=== PATIENT | male | born 1980 | race Caucasian/White ===

== ENCOUNTER 2018-11-16 11:06 | Emergency (ER) | payer SELFPAY ==
[~2018-11-16] VITALS: Ht 175.3 cm; Wt 85.0 kg
[2018-11-16] MEDS ORDERED: SODIUM CHLORIDE 0.9% 1,000 ML IV ONE ×2 (11:53→12:00)
[2018-11-16] MEDS ORDERED: INSULIN REGULAR (HUMULIN R) 300UNITS/3ML IV ONE (12:00)
[2018-11-16 12:12] LABS: BASOPHILS % 0.3 % (0.0-2.0); EOSINOPHILS % 1.8 % (0.0-5.0); HEMATOCRIT. 44.3 % (42.0-52.0); LYMPHOCYTES % 33.8 % (20.0-50.0); MEAN CORPUSCULAR HEMOGLOBIN 30.1 pg (28.0-32.0); MEAN PLATELET VOLUME 8.8 fl (7.4-10.4); MONOCYTES % 4.5 % (2.0-8.0); NEUTROPHILS % 59.6 % (40.0-76.0); PLATELET 254 x1000/uL (130-400); RED BLOOD CELL COUNT 4.97 mill/uL (4.7-6.1); RED CELL DISTRIBUTION WIDTH 12.9 % (11.6-14.6)
[2018-11-16 12:18] LABS: CHLORIDE 104 mEq/L (98-107)
[2018-11-16 12:24] LABS: BETA HYDROXYBUTYRATE 4.5 mMol/L (0.0-0.3)
[2018-11-16] MEDS ORDERED: IOHEXOL-350 100 ML BOTTLE ONE (14:41)
[2018-11-16 15:46] LABS: CLARITY URINE CLEAR (CLEAR); COLOR URINE YELLOW (YELLOW); KETONES URINE 3+ (NEGATIVE); LEUKOCYTE ESTERASE URINE NEGATIVE (NEGATIVE); NITRITE URINE NEGATIVE (NEGATIVE); OCCULT BLOOD URINE NEGATIVE (NEGATIVE); PROTEIN URINE NEGATIVE (NEGATIVE); SPECIFIC GRAVITY URINE 1.089 (1.005-1.030); UROBILINOGEN URINE 0.2 E.U./dL (0.2-1.0)
[2018-11-16 16:45] VITALS: BP 125/65
== END 2018-11-16 17:07 | disposition home or self-care (01) ==
LOC: ER 11:06
DX: S13.9XXA Sprain of joints and ligaments of unspecified parts of neck, initial encounter (principal); R07.89 Other chest pain; R10.9 Unspecified abdominal pain; I10 Essential (primary) hypertension; E11.9 Type 2 diabetes mellitus without complications; V49.88XA Car occupant (driver) (passenger) injured in other specified transport accidents, initial encounter; Y93.89 Activity, other specified; Y92.89 Other specified places as the place of occurrence of the external cause; Y99.8 Other external cause status
CPT/HCPCS: 36415; 70450; 71045; 71260; 72125; 74177; 80053; 81003; 82010; 83690; 84484; 85025; 93005; 96374; 99284; J1815; J7030; Q9967

== ENCOUNTER 2021-05-03 15:58 | Inpatient (IN) | payer MEDICAID ==
[~2021-05-03] VITALS: Ht 177.8 cm; Wt 80.7 kg
[2021-05-03] MEDS ORDERED: ONDANSETRON HCL 4MG/2ML INJ IV STA (16:48)
[2021-05-03] MEDS ORDERED: SODIUM CHLORIDE 0.9% 1,000 ML IV ONE ×2 (17:00→20:00)
[2021-05-03 17:14] LABS: BASOPHILS % 0.3 % (0.0-2.0); EOSINOPHILS % 0.4 % (0.0-5.0); HEMATOCRIT. 52.2 % (42.0-52.0); HEMOGLOBIN. 17.5 g/dL (14.0-18.0); LYMPHOCYTES % 25.1 % (20.0-50.0); MEAN CORPUSCULAR HEMOGLOBIN 30.7 pg (28.0-32.0); MEAN CORPUSCULAR VOLUME 91.4 fL (80.0-94.0); MEAN PLATELET VOLUME 8.2 fl (7.4-10.4); MONOCYTES % 6.5 % (2.0-8.0); NEUTROPHILS % 67.7 % (40.0-76.0); PLATELET 399 x1000/uL (130-400); RED BLOOD CELL COUNT 5.71 mill/uL (4.7-6.1); RED CELL DISTRIBUTION WIDTH 13.6 % (11.6-14.6)
[2021-05-03 17:20] LABS: CHLORIDE 98 mEq/L (98-107)
[2021-05-03 17:26] LABS: ETHANOL BLOOD < 10 mg/dL
[2021-05-03] MEDS ORDERED: KETOROLAC 30MG/ML VIAL IV ONE (17:30)
[2021-05-03 20:21] LABS: CLARITY URINE CLEAR (CLEAR); COLOR URINE YELLOW (YELLOW); KETONES URINE 4+ (NEGATIVE); LEUKOCYTE ESTERASE URINE NEGATIVE (NEGATIVE); NITRITE URINE NEGATIVE (NEGATIVE); OCCULT BLOOD URINE NEGATIVE (NEGATIVE); PROTEIN URINE 1+ (NEGATIVE); SPECIFIC GRAVITY URINE 1.039 (1.005-1.030); UROBILINOGEN URINE 0.2 E.U./dL (0.2-1.0)
[2021-05-03] MEDS ORDERED: INSULIN REGULAR (HUMULIN R) 300UNITS/3ML VIAL IV ONE (20:30)
[2021-05-03 20:34] LABS: *AMPHETAMINES SCREEN URINE PRESUMTIVE POSITIVE (NEGATIVE); *BARBITURATES SCREEN URINE NEGATIVE (NEGATIVE); *BENZODIAZEPINES SCREEN URINE NEGATIVE (NEGATIVE)
[2021-05-03 20:36] LABS: *COCAINE SCREEN URINE NEGATIVE (NEGATIVE); CANNABINOID URINE SCREEN NEGATIVE (NEGATIVE); METHADONE URINE SCREEN NEGATIVE (NEGATIVE); OPIATES URINE SCREEN NEGATIVE (NEGATIVE); PHENCYCLIDINE URINE SCREEN NEGATIVE (NEGATIVE)
[2021-05-03 21:15] LABS: BG BASE EXCESS -16.7 mmol/L (-2.0-2.0); BG CARBOXYHEMOGLOBIN 0.6 % (0.5-1.5); BG DEOXYHEMOGLOBIN 1.5 % (0.0-5.0); BG HCO3 ACT 8.2 mmol/L (22.0-26.0); BG METHEMOGLOBIN 0.5 % (0.0-1.5); BG OXYGEN SATURATION 98.5 % (92.0-98.5); BG OXYHEMOGLOBIN 97.4 % (94.0-97.0); BG PCO2 19.7 mmHg (35.0-45.0); BG PH 7.235 (7.350-7.450); BG SAMPLE SITE RIGHT BRACHIAL; BG TOTAL HEMOGLOBIN 16.7 g/dL (12.0-18.0); BG VENT MODE ROOM AIR
[2021-05-03] MEDS ORDERED: INSULIN REGULAR (DRIP) 100 UNITS in SODIUM CHLORIDE 0.9% 99 ML IV ONE (21:30)
[2021-05-03] MEDS ORDERED: INSULIN REGULAR (DRIP) 100 UNITS in SODIUM CHLORIDE 0.9% 99 ML IV SCH (23:00)
[2021-05-04] MEDS ORDERED: DEXT 5%/0.45% NACL KCL 20MEQ/L 1,000 ML IV SCH (05:00)
[2021-05-04] MEDS ORDERED: ONDANSETRON HCL 4MG/2ML INJ IV PRN (08:15)
[2021-05-04 08:45] LABS: CHLORIDE 110 mEq/L (98-107)
[2021-05-04 08:50] LABS: PHOSPHORUS 1.5 mg/dL (2.5-4.9)
[2021-05-04 09:32] LABS: HEMOGLOBIN 15.3 g/dL (14.0-18.0); MEAN CORPUSCULAR HEMOGLOBIN 30.1 pg (28.0-32.0); MEAN CORPUSCULAR VOLUME 88.6 fL (80.0-94.0); PLATELET 312 x1000/uL (130-400); RED BLOOD CELL COUNT 5.08 mill/uL (4.7-6.1); RED CELL DISTRIBUTION WIDTH 13.9 % (11.6-14.6)
[2021-05-04] MEDS: PANTOPRAZOLE SODIUM 40 MG/VIAL IV SCH (09:40)
[2021-05-04] MEDS ORDERED: DEXTROSE 50% WATER 50ML SYRINGE IV PRN (10:30)
[2021-05-04] MEDS ORDERED: SODIUM PHOS,M-BASIC-D-BASIC 20 MM in DEXT 5% WATER 243.3333 ML IV NR (11:00)
[2021-05-04] MEDS ORDERED: INSULIN GLARGINE UD 100 UNITS/ML SYR SUBCUT NR (11:00)
[2021-05-04] MEDS: BLOOD SUGAR DIAGNOSTIC STRIP TEST SCH ×3 (11:46→21:00)
[2021-05-04] MEDS: INSULIN LISPRO 100 UNITS/ML SUBCUT SCH ×3 (13:50→21:44)
[2021-05-04 14:50] VITALS: BP 111/69
[2021-05-04 20:00] VITALS: BP 109/65
[2021-05-04] MEDS: INSULIN GLARGINE UD 100 UNITS/ML SYR SUBCUT SCH (21:44)
[2021-05-05] VITALS: BP 98/60
[2021-05-05 04:00] VITALS: BP 107/58
[2021-05-05] MEDS: BLOOD SUGAR DIAGNOSTIC STRIP TEST SCH ×4 (06:52→21:49)
[2021-05-05 08:00] VITALS: BP 114/79
[2021-05-05] MEDS: PANTOPRAZOLE SODIUM 40 MG/VIAL IV SCH (08:30)
[2021-05-05] MEDS: INSULIN LISPRO 100 UNITS/ML SUBCUT SCH ×4 (08:38→21:40)
[2021-05-05] MEDS: INSULIN GLARGINE UD 100 UNITS/ML SYR SUBCUT SCH ×2 (09:46→22:16)
[2021-05-05 12:00] VITALS: BP 105/68
[2021-05-05 20:00] VITALS: BP 105/62
[2021-05-05] MEDS: METOCLOPRAMIDE HCL 5MG TABLET PO SCH (21:03)
[2021-05-06] MEDS: BLOOD SUGAR DIAGNOSTIC STRIP TEST SCH ×2 (06:41→13:15)
[2021-05-06] MEDS: INSULIN LISPRO 100 UNITS/ML SUBCUT SCH ×2 (06:43→13:31)
[2021-05-06] MEDS: METOCLOPRAMIDE HCL 5MG TABLET PO SCH ×2 (06:50→13:28)
[2021-05-06 08:00] VITALS: BP 126/90
[2021-05-06] MEDS: PANTOPRAZOLE SODIUM 40 MG/VIAL IV SCH (09:12)
[2021-05-06] MEDS: INSULIN GLARGINE UD 100 UNITS/ML SYR SUBCUT SCH (11:24)
[2021-05-06 12:00] VITALS: BP 114/79
[2021-05-06] MEDS ORDERED: INSU100I28 SQ (12:10)
[2021-05-06] MEDS ORDERED: METF-873 MT (12:10)
[2021-05-06] MEDS ORDERED: INSLIS SUBCUT (12:10)
[2021-05-06 15:40] VITALS: BP 144/79
[2021-05-06 16:00] VITALS: BP 126/81
== END 2021-05-06 16:10 | disposition home or self-care (01) | DRG 420 ==
LOC: ER 15:58 → MICUSO 21:20 → EDBEDREQ 21:25 → EDBEDREQTM 21:28 → EDBEDREQ 21:28 → EDBEDREQSVC 21:28 → 6EST 05-04 14:20
PROVIDERS: ADMIT Internal Medicine; ATTEND Internal Medicine
DX: E11.10 Type 2 diabetes mellitus with ketoacidosis without coma (principal); E83.39 Other disorders of phosphorus metabolism; E87.1 Hypo-osmolality and hyponatremia; I10 Essential (primary) hypertension; F15.10 Other stimulant abuse, uncomplicated; E86.0 Dehydration; Z82.49 Family history of ischemic heart disease and other diseases of the circulatory system; Z71.51 Drug abuse counseling and surveillance of drug abuser
CPT/HCPCS: 36415; 36600; 71045; 74176; 80048; 80053; 80305; 80320; 81003; 82010; 82375; 82805; 82962; 83036; 83735; 83930; 84100; 84484; 85025; 85027; 93005; 99291; C9113; J1815; J1885; J2405; J3490; J7030; J7050; J7060; J8597; G0480

== ENCOUNTER 2022-03-31 21:37 | Emergency (ER) | payer MEDICAID ==
[~2022-03-31] VITALS: Ht 175.3 cm; Wt 76.6 kg
[~2022-03-31 21:37] MED LIST: INSLIS SUBCUT; INSU100I28 SQ; METF-873 MT
[2022-03-31] MEDS ORDERED: TETANUS, DIPHTHERIA, PERTUSSIS VAC/PF 0.5ML (>10YR OLD) IM ONE (23:15)
[2022-03-31] MEDS ORDERED: KETOROLAC 30MG/ML VIAL IM ONE (23:15)
[2022-04-01] MEDS ORDERED: CIPR-263 MT (00:57)
[2022-04-01 01:09] VITALS: BP 122/73
== END 2022-04-01 01:10 | disposition home or self-care (01) ==
LOC: ER 21:37
DX: M79.671 Pain in right foot (principal); E11.9 Type 2 diabetes mellitus without complications; F15.10 Other stimulant abuse, uncomplicated
CPT/HCPCS: 73630; 82962; 90471; 90715; 96372; 99284; J1885

== ENCOUNTER 2024-01-08 18:53 | Emergency (ER) | payer MEDICAID ==
[~2024-01-08] VITALS: Ht 172.7 cm; Wt 73.0 kg
[~2024-01-08 18:53] MED LIST changes: +CIPR-263 MT; +DOCU-150 PO; +LIP40 PO
[2024-01-08 18:56] VITALS: TEMP 98.2; O2SAT 96
[2024-01-08] MEDS ORDERED: ACETAMINOPHEN 325MG TABLET PO STA (19:06)
[2024-01-08] MEDS ORDERED: ONDANSETRON HCL 4MG/2ML INJ IV STA (19:06)
[2024-01-08] MEDS: SODIUM CHLORIDE 0.9% 1,000 ML IV ONE (19:15)
[2024-01-08 20:40] LABS: BASOPHILS % 0.4 % (0.0-2.0); EOSINOPHILS % 1.8 % (0.0-5.0); HEMATOCRIT. 34.2 % (42.0-52.0); HEMOGLOBIN. 11.5 g/dL (14.0-18.0); LYMPHOCYTES % 37.2 % (20.0-50.0); MEAN CORPUSCULAR HEMOGLOBIN 30.5 pg (28.0-32.0); MEAN CORPUSCULAR HGB CONC 33.6 g/dL (31.0-37.0); MEAN CORPUSCULAR VOLUME 90.7 fL (80.0-94.0); NEUTROPHILS % 52.6 % (40.0-76.0); PLATELET 284 x1000/uL (130-400); RED BLOOD CELL COUNT 3.77 mill/uL (4.7-6.1); RED CELL DISTRIBUTION WIDTH 13.1 % (11.6-14.6); WHITE BLOOD COUNT 8.5 x1000/uL (4.5-11.0)
[2024-01-08 20:49] LABS: CHLORIDE 99 mEq/L (98-107); POTASSIUM 4.3 mEq/L (3.5-5.1); SODIUM 131 mEq/L (136-145)
[2024-01-08 20:50] LABS: CARBON DIOXIDE 22 mEq/L (21-32)
[2024-01-08 20:51] LABS: CALCIUM 8.5 mg/dL (8.7-10.4)
[2024-01-08 20:55] LABS: CREATININE 0.9 mg/dL (0.6-1.3)
[2024-01-08 20:56] LABS: UREA NITROGEN BLOOD 14 mg/dL (9-23)
[2024-01-08 20:57] LABS: ALANINE AMINOTRANSFERASE 11 IU/L (10-49); ASPARTATE AMINOTRANSFERASE 12 IU/L (<34)
[2024-01-08 20:58] LABS: BILIRUBIN TOTAL 0.3 mg/dL (0.1-1.0); PROTEIN TOTAL 6.5 g/dL (6.0-8.3)
[2024-01-08] MEDS: ONDANSETRON HCL 4MG/2ML INJ IV NR (21:17)
[2024-01-08] MEDS: ACETAMINOPHEN 325MG TABLET PO NR (21:17)
[2024-01-08 21:35] LABS: BILIRUBIN DIRECT < 0.1 mg/dL (<=3.0); GLUCOSE 562 mg/dL (70-105)
[2024-01-08 21:49] LABS: BETA HYDROXYBUTYRATE 0.3 mMol/L (0.0-0.3)
[2024-01-08] MEDS ORDERED: CEPH500C2 MT (21:57)
[2024-01-08] MEDS ORDERED: SULF1TAB48 MT (21:57)
[2024-01-08] MEDS ORDERED: ONDA4TAB11 PO (21:57)
[2024-01-08] MEDS ORDERED: INSULIN REGULAR (HUMULIN R) 1000UNITS/10ML VIAL IV ONE (22:00)
[2024-01-08] MEDS: INSULIN REGULAR (HUMULIN R) 1000UNITS/10ML VIAL SUBCUT NR (23:16)
[2024-01-08 23:24] VITALS: BP 103/54; PULSE 85; RESP 14
== END 2024-01-08 23:25 | disposition home or self-care (01) ==
LOC: ER 18:53
DX: I80.9 Phlebitis and thrombophlebitis of unspecified site (principal); E11.65 Type 2 diabetes mellitus with hyperglycemia; R11.2 Nausea with vomiting, unspecified; I10 Essential (primary) hypertension; F15.10 Other stimulant abuse, uncomplicated; Z79.4 Long term (current) use of insulin; Z79.899 Other long term (current) drug therapy
CPT/HCPCS: 80076; 80048; 82010; 82962; 83690; 85025; 36415; 93971; 74176; 96361; 96372; 96374; 99285; J1815; J2405; J7030; Z7610

== ENCOUNTER 2024-04-10 13:55 | Emergency (ER) | payer MEDICAID ==
[~2024-04-10] VITALS: Ht 177.8 cm; Wt 85.0 kg
[~2024-04-10 13:55] MED LIST changes: +CEPH500C2 MT; +ONDA-239 PO; +SULF1TAB48 MT
[2024-04-10 13:58] VITALS: BP 124/89; PULSE 85; RESP 19; TEMP 98.5; O2SAT 98
[2024-04-10 14:55] LABS: BASOPHILS % 0.3 % (0.0-2.0); EOSINOPHILS % 2.2 % (0.0-5.0); HEMATOCRIT. 40.7 % (42.0-52.0); HEMOGLOBIN. 13.6 g/dL (14.0-18.0); LYMPHOCYTES % 45.7 % (20.0-50.0); MEAN CORPUSCULAR HGB CONC 33.3 g/dL (31.0-37.0); MEAN CORPUSCULAR VOLUME 90.1 fL (80.0-94.0); MEAN PLATELET VOLUME 8.4 fl (7.4-10.4); MONOCYTES % 5.5 % (2.0-8.0); NEUTROPHILS % 46.3 % (40.0-76.0); PLATELET 341 x1000/uL (130-400); RED BLOOD CELL COUNT 4.52 mill/uL (4.7-6.1); RED CELL DISTRIBUTION WIDTH 13.9 % (11.6-14.6); WHITE BLOOD COUNT 7.6 x1000/uL (4.5-11.0)
[2024-04-10 15:05] LABS: CHLORIDE 99 mEq/L (98-107); POTASSIUM 4.3 mEq/L (3.5-5.1); SODIUM 133 mEq/L (136-145)
[2024-04-10 15:06] LABS: CARBON DIOXIDE 28 mEq/L (21-32)
[2024-04-10 15:07] LABS: CALCIUM 10.3 mg/dL (8.7-10.4)
[2024-04-10 15:12] LABS: UREA NITROGEN BLOOD 13 mg/dL (9-23)
[2024-04-10 15:23] LABS: GLUCOSE 295 mg/dL (70-105)
== END 2024-04-10 16:13 | disposition left against medical advice (07) ==
LOC: ER 14:10
DX: R10.31 Right lower quadrant pain (principal); F15.10 Other stimulant abuse, uncomplicated; E11.9 Type 2 diabetes mellitus without complications; I10 Essential (primary) hypertension; Z79.899 Other long term (current) drug therapy
CPT/HCPCS: 36415; 80048; 85025; 99283

== ENCOUNTER 2024-08-04 11:03 | Emergency (ER) | payer MEDICAID ==
[~2024-08-04] VITALS: Ht 172.7 cm; Wt 78.0 kg
[~2024-08-04 11:03] MED LIST changes: -DOCU-150 PO; +DOCU-422 PO; +METF-1149 MT; -METF-873 MT
[2024-08-04 11:05] VITALS: O2SAT 100
[2024-08-04 12:20] LABS: BASOPHILS % 0.4 % (0.0-2.0); EOSINOPHILS % 1.6 % (0.0-5.0); HEMATOCRIT. 38.5 % (42.0-52.0); HEMOGLOBIN. 13.1 g/dL (14.0-18.0); LYMPHOCYTES % 40.6 % (20.0-50.0); MEAN CORPUSCULAR HEMOGLOBIN 30.6 pg (28.0-32.0); MEAN CORPUSCULAR HGB CONC 33.9 g/dL (31.0-37.0); MEAN CORPUSCULAR VOLUME 90.4 fL (80.0-94.0); MEAN PLATELET VOLUME 8.1 fl (7.4-10.4); MONOCYTES % 6.8 % (2.0-8.0); NEUTROPHILS % 50.6 % (40.0-76.0); PLATELET 340 x1000/uL (130-400); RED BLOOD CELL COUNT 4.26 mill/uL (4.7-6.1); WHITE BLOOD COUNT 6.4 x1000/uL (4.5-11.0)
[2024-08-04 12:33] LABS: CHLORIDE 101 mEq/L (98-107); POTASSIUM 4.2 mEq/L (3.5-5.1); SODIUM 134 mEq/L (136-145)
[2024-08-04 12:35] LABS: CARBON DIOXIDE 23 mEq/L (21-32)
[2024-08-04 12:36] LABS: CALCIUM 9.1 mg/dL (8.7-10.4)
[2024-08-04 12:41] LABS: UREA NITROGEN BLOOD 15 mg/dL (9-23)
[2024-08-04 12:42] LABS: ALANINE AMINOTRANSFERASE 32 IU/L (10-49); ALBUMIN 3.9 g/dL (3.2-4.8); ASPARTATE AMINOTRANSFERASE 34 IU/L (<34)
[2024-08-04 12:43] LABS: BILIRUBIN TOTAL 0.3 mg/dL (0.1-1.0); PROTEIN TOTAL 6.5 g/dL (6.0-8.3)
[2024-08-04 12:44] LABS: BILIRUBIN DIRECT < 0.1 mg/dL (<=3.0); TROPONIN I HIGH SENSITIVITY < 4 ng/L (3.0-53)
[2024-08-04 12:45] LABS: GLUCOSE 510 mg/dL (70-105)
[2024-08-04] MEDS: METOCLOPRAMIDE HCL 10MG/2ML VIAL IV ONE (14:35)
[2024-08-04] MEDS: ACETAMINOPHEN 325MG TABLET PO ONE (14:36)
[2024-08-04] MEDS: LACTATED RINGERS 1,000 ML IV SCH (14:42)
[2024-08-04] MEDS: ACETAMINOPHEN 325MG TABLET PO NR (14:51)
[2024-08-04] MEDS: INSULIN REGULAR (HUMULIN R) 1000UNITS/10ML VIAL IV ONE (14:52)
[2024-08-04 16:11] LABS: TROPONIN I HIGH SENSITIVITY < 4 ng/L (3.0-53)
[2024-08-04 16:29] LABS: CLARITY URINE CLEAR (CLEAR); COLOR URINE YELLOW (YELLOW); GLUCOSE URINE 3+ (NEGATIVE); KETONES URINE NEGATIVE (NEGATIVE); LEUKOCYTE ESTERASE URINE NEGATIVE (NEGATIVE); NITRITE URINE NEGATIVE (NEGATIVE); OCCULT BLOOD URINE NEGATIVE (NEGATIVE); PROTEIN URINE NEGATIVE (NEGATIVE); SPECIFIC GRAVITY URINE 1.035 (1.005-1.030); UROBILINOGEN URINE 0.2 E.U./dL (0.2-1.0)
[2024-08-04 17:04] LABS: BACTERIA URINE NONE SEEN; RBC URINE NONE SEEN /hpf (0-2); SQUAMOUS EPITHELIAL CELL URINE RARE /lpf (RARE/1+); WBC URINE NONE SEEN /hpf (0-2)
[2024-08-04 18:02] VITALS: BP 121/78; PULSE 76; RESP 20; TEMP 36.9; O2SAT 100
== END 2024-08-04 18:04 | disposition home or self-care (01) ==
LOC: ER 11:03 → EDBEDREQ 11:23 → EDBEDREQTM 13:40 → EDBEDREQ 13:40 → ER 18:04
DX: E11.65 Type 2 diabetes mellitus with hyperglycemia (principal); R10.31 Right lower quadrant pain; R06.02 Shortness of breath; R51.9 Headache, unspecified; R53.1 Weakness; R30.0 Dysuria; I10 Essential (primary) hypertension; Z79.4 Long term (current) use of insulin; Z79.84 Long term (current) use of oral hypoglycemic drugs; Z79.899 Other long term (current) drug therapy
CPT/HCPCS: 80076; 80048; 81003; 82962; 83690; 85025; 84484; 36415; 71045; 70450; 74176; 93005; 96374; 99285; J1815; Z7610

== ENCOUNTER 2024-09-15 11:13 | Emergency (ER) | payer BC, MEDICAID ==
[~2024-09-15] VITALS: Ht 175.3 cm; Wt 86.0 kg
[2024-09-15 11:22] VITALS: O2SAT 98
[2024-09-15 12:33] LABS: BASOPHILS % 0.4 % (0.0-2.0); HEMATOCRIT. 38.7 % (42.0-52.0); HEMOGLOBIN. 12.9 g/dL (14.0-18.0); LYMPHOCYTES % 38.9 % (20.0-50.0); MEAN CORPUSCULAR HEMOGLOBIN 29.8 pg (28.0-32.0); MEAN CORPUSCULAR HGB CONC 33.4 g/dL (31.0-37.0); MEAN CORPUSCULAR VOLUME 89.2 fL (80.0-94.0); MEAN PLATELET VOLUME 7.9 fl (7.4-10.4); MONOCYTES % 5.7 % (2.0-8.0); PLATELET 374 x1000/uL (130-400); RED BLOOD CELL COUNT 4.33 mill/uL (4.7-6.1); RED CELL DISTRIBUTION WIDTH 13.1 % (11.6-14.6); WHITE BLOOD COUNT 7.1 x1000/uL (4.5-11.0)
[2024-09-15 12:40] VITALS: TEMP 36.7
[2024-09-15 12:42] LABS: CHLORIDE 102 mEq/L (98-107); POTASSIUM 4.2 mEq/L (3.5-5.1); SODIUM 135 mEq/L (136-145)
[2024-09-15 12:43] LABS: CALCIUM 9.6 mg/dL (8.7-10.4); CARBON DIOXIDE 23 mEq/L (21-32)
[2024-09-15 12:48] LABS: CREATININE 0.9 mg/dL (0.6-1.3); UREA NITROGEN BLOOD 18 mg/dL (9-23)
[2024-09-15 12:50] LABS: ALANINE AMINOTRANSFERASE 20 IU/L (10-49); ALBUMIN 4.1 g/dL (3.2-4.8); ASPARTATE AMINOTRANSFERASE 25 IU/L (<34)
[2024-09-15 12:51] LABS: BILIRUBIN TOTAL 0.2 mg/dL (0.1-1.0); INR 0.9; PROTEIN TOTAL 7.2 g/dL (6.0-8.3); PROTHROMBIN TIME 9.3 sec (9.6-11.0)
[2024-09-15 13:10] LABS: CLARITY URINE CLEAR (CLEAR); COLOR URINE YELLOW (YELLOW); GLUCOSE URINE 3+ (NEGATIVE); KETONES URINE NEGATIVE (NEGATIVE); LEUKOCYTE ESTERASE URINE NEGATIVE (NEGATIVE); NITRITE URINE NEGATIVE (NEGATIVE); OCCULT BLOOD URINE NEGATIVE (NEGATIVE); PH URINE 5.5 (4.5-8.0); PROTEIN URINE NEGATIVE (NEGATIVE); UROBILINOGEN URINE 0.2 E.U./dL (0.2-1.0)
[2024-09-15 13:33] LABS: BACTERIA URINE NONE SEEN; RBC URINE NONE SEEN /hpf (0-2); SQUAMOUS EPITHELIAL CELL URINE NONE SEEN /lpf (RARE/1+); WBC URINE 0-2 /hpf (0-2); YEAST URINE NONE SEEN
[2024-09-15 13:40] LABS: BILIRUBIN DIRECT < 0.1 mg/dL (<=3.0); GLUCOSE 443 mg/dL (70-105)
[2024-09-15] MEDS: KETOROLAC 30MG/ML VIAL IV ONE (13:40)
[2024-09-15] MEDS ORDERED: INSULIN LISPRO 100 UNITS/ML SUBCUT STA (13:51)
[2024-09-15] MEDS ORDERED: POLY17PO3 MT (13:52)
[2024-09-15] MEDS ORDERED: DOCU-422 PO (13:52)
[2024-09-15 14:35] VITALS: BP 110/69; PULSE 79; RESP 16; O2SAT 99
[2024-09-15] MEDS ORDERED: BLOOD SUGAR DIAGNOSTIC STRIP TEST SCH (17:00)
== END 2024-09-15 14:39 | disposition home or self-care (01) ==
LOC: ER 11:13
DX: K59.00 Constipation, unspecified (principal); F15.90 Other stimulant use, unspecified, uncomplicated; E11.65 Type 2 diabetes mellitus with hyperglycemia; F17.200 Nicotine dependence, unspecified, uncomplicated; I10 Essential (primary) hypertension; Z79.899 Other long term (current) drug therapy; Z79.84 Long term (current) use of oral hypoglycemic drugs; Z79.4 Long term (current) use of insulin
CPT/HCPCS: 80076; 80048; 81003; 83690; 85025; 85610; 36415; 74176; 96374; 99285; J1885; Z7610 ×5; A4606

== ENCOUNTER 2025-04-22 08:48 | Inpatient (IN) | payer BC, MEDICAID ==
[~2025-04-22] VITALS: Ht 177.8 cm; Wt 66.7 kg
[~2025-04-22 08:48] MED LIST changes: +POLY17PO3 MT
[2025-04-22 08:53] VITALS: O2SAT 99
[2025-04-22] MEDS: SODIUM CHLORIDE 0.9% 1,000 ML IV ONE ×2 (09:37→11:52)
[2025-04-22 09:53] LABS: BASOPHILS % 0.2 % (0.0-2.0); EOSINOPHILS % 0.6 % (0.0-5.0); HEMATOCRIT. 41.0 % (42.0-52.0); HEMOGLOBIN. 13.6 g/dL (14.0-18.0); LYMPHOCYTES % 22.0 % (20.0-50.0); MEAN PLATELET VOLUME 8.8 fl (7.4-10.4); MONOCYTES % 5.0 % (2.0-8.0); NEUTROPHILS % 72.2 % (40.0-76.0); PLATELET 286 x1000/uL (130-400); RED BLOOD CELL COUNT 4.50 mill/uL (4.7-6.1); RED CELL DISTRIBUTION WIDTH 12.8 % (11.6-14.6)
[2025-04-22 10:17] LABS: TROPONIN I HIGH SENSITIVITY < 4 ng/L (3.0-53)
[2025-04-22 10:30] LABS: CREATININE 1.3 mg/dL (0.6-1.3)
[2025-04-22 10:31] LABS: UREA NITROGEN BLOOD 15 mg/dL (9-23)
[2025-04-22 10:46] LABS: BG BASE EXCESS -6.3 mmol/L (-2.0-3.0); BG CARBOXYHEMOGLOBIN 0.5 % (0.5-1.5); BG DEOXYHEMOGLOBIN 2.0 % (0.0-5.0); BG FRACTION INSPIRED OXYGEN 21; BG HCO3 ACT 17.9 mmol/L (21.0-28.0); BG METHEMOGLOBIN 0.3 % (0.5-1.5); BG OXYGEN SATURATION 98.0 % (94.0-98.0); BG OXYHEMOGLOBIN 97.2 % (94.0-98.0); BG PCO2 31.9 mmHg (35.0-48.0); BG PH 7.366 (7.350-7.450); BG PO2 107.3 mmHg (83.0-108.0); BG SAMPLE SITE RIGHT BRACHIAL; BG TOTAL HEMOGLOBIN 13.9 g/dL (13.5-17.5); BG VENT MODE ROOM AIR
[2025-04-22] MEDS: INSULIN REGULAR (HUMULIN R) 1000UNITS/10ML VIAL IV ONE (11:37)
[2025-04-22] MEDS: INSULIN LISPRO 100 UNITS/ML SUBCUT SCH ×2 (13:10→14:00)
[2025-04-22] MEDS ORDERED: CLONIDINE 0.1MG TABLET PO PRN (13:15)
[2025-04-22] MEDS ORDERED: ONDANSETRON HCL 4MG/2ML INJ IV PRN (13:15)
[2025-04-22] MEDS ORDERED: NALOXONE HCL 0.4MG/ML VIAL IV PRN (13:15)
[2025-04-22] MEDS ORDERED: MAGNESIUM/ALUMINUM HYDROXIDE/SIMETHICONE 30ML UDC PO PRN (13:15)
[2025-04-22] MEDS ORDERED: DEXTROSE 50% WATER 50ML SYRINGE IV PRN (13:15)
[2025-04-22] MEDS: BLOOD SUGAR DIAGNOSTIC STRIP TEST SCH (13:48)
[2025-04-22 14:01] LABS: *AMPHETAMINES SCREEN URINE NEGATIVE (NEGATIVE); *BARBITURATES SCREEN URINE NEGATIVE (NEGATIVE); *BENZODIAZEPINES SCREEN URINE NEGATIVE (NEGATIVE); *COCAINE SCREEN URINE NEGATIVE (NEGATIVE); METHADONE URINE SCREEN NEGATIVE (NEGATIVE); OPIATES URINE SCREEN NEGATIVE (NEGATIVE)
[2025-04-22 14:02] LABS: CANNABINOID URINE SCREEN NEGATIVE (NEGATIVE); ECSTASY MDMA SCREEN URINE NEGATIVE (NEGATIVE); PHENCYCLIDINE URINE SCREEN NEGATIVE (NEGATIVE)
[2025-04-22] MEDS: PANTOPRAZOLE SODIUM 40 MG/VIAL IV SCH (14:02)
[2025-04-22] MEDS: SODIUM CHLORIDE 0.9% 1,000 ML IV SCH (14:03)
[2025-04-22] MEDS: ENOXAPARIN 40MG/0.4ML SYR SUBCUT SCH (14:03)
[2025-04-22 15:33] VITALS: BP 108/75; PULSE 87; RESP 20; TEMP 36.8072
[2025-04-22 16:30] VITALS: BP 114/79; PULSE 95; RESP 18; TEMP 36.6; O2SAT 100
[2025-04-22] MEDS ORDERED: INSU100I28 SQ (18:58)
[2025-04-22 20:00] VITALS: BP 127/78; PULSE 99; RESP 18; TEMP 36.3; O2SAT 99
[2025-04-22] MEDS: ATORVASTATIN CALCIUM 40MG TABLET PO SCH (21:00)
[2025-04-22] MEDS ORDERED: ZOLPIDEM TARTRATE 5MG TABLET PO PRN (21:00)
[2025-04-22 21:59] LABS: CLARITY URINE CLEAR (CLEAR); COLOR URINE YELLOW (YELLOW); PH URINE 7.5 (4.5-8.0); PROTEIN URINE NEGATIVE (NEGATIVE); SPECIFIC GRAVITY URINE 1.041 (1.005-1.030)
[2025-04-22 22:00] LABS: GLUCOSE URINE 3+ (NEGATIVE); KETONES URINE TRACE (NEGATIVE); NITRITE URINE NEGATIVE (NEGATIVE); OCCULT BLOOD URINE NEGATIVE (NEGATIVE); UROBILINOGEN URINE 0.2 E.U./dL (0.2-1.0)
[2025-04-22 22:01] LABS: LEUKOCYTE ESTERASE URINE NEGATIVE (NEGATIVE)
[2025-04-22] MEDS: INSULIN GLARGINE 100 UNITS/ML SUBCUT SCH (22:48)
[2025-04-23 00:41] VITALS: BP 115/78; PULSE 88; RESP 18; TEMP 36.3; O2SAT 99
[2025-04-23 04:00] VITALS: BP 122/83; PULSE 87; RESP 18; TEMP 36.3; O2SAT 99
[2025-04-23] MEDS: ACETAMINOPHEN 325MG TABLET PO PRN (06:12)
[2025-04-23 08:00] VITALS: BP 122/87; PULSE 84; RESP 18; TEMP 36.5; O2SAT 99
[2025-04-23 12:00] VITALS: BP 119/76; PULSE 97; RESP 16; TEMP 36.6; O2SAT 100
[2025-04-23] MEDS: HYDROCODONE/ACETAMINOPHEN 5/325MG TABLET PO PRN (12:15)
[2025-04-23 13:22] LABS: BASOPHILS % 0.9 % (0.0-2.0); EOSINOPHILS % 1.2 % (0.0-5.0); HEMATOCRIT. 38.7 % (42.0-52.0); HEMOGLOBIN. 13.2 g/dL (14.0-18.0); LYMPHOCYTES % 46.4 % (20.0-50.0); MEAN PLATELET VOLUME 8.6 fl (7.4-10.4); MONOCYTES % 5.5 % (2.0-8.0); NEUTROPHILS % 46.0 % (40.0-76.0); PLATELET 288 x1000/uL (130-400); RED BLOOD CELL COUNT 4.41 mill/uL (4.7-6.1); RED CELL DISTRIBUTION WIDTH 12.8 % (11.6-14.6)
[2025-04-23 13:26] LABS: CREATININE 0.8 mg/dL (0.6-1.3)
[2025-04-23 13:27] LABS: LDL CHOLESTEROL 123 mg/dL (5-100); TRIGLYCERIDE 189 mg/dL (0-150); UREA NITROGEN BLOOD 9 mg/dL (9-23)
[2025-04-23 16:00] VITALS: BP 144/96; PULSE 89; RESP 18; TEMP 36.8; O2SAT 100
[2025-04-23 20:00] VITALS: BP 128/87; PULSE 97; RESP 18; TEMP 36.7; O2SAT 97
[2025-04-24] VITALS: BP 119/79; PULSE 87; RESP 18; TEMP 36.7; O2SAT 98
[2025-04-24 04:00] VITALS: BP 124/92; PULSE 93; RESP 18; TEMP 36.9; O2SAT 93
[2025-04-24 06:45] LABS: CREATININE 0.9 mg/dL (0.6-1.3)
[2025-04-24 06:46] LABS: UREA NITROGEN BLOOD 9 mg/dL (9-23)
[2025-04-24 06:49] LABS: BASOPHILS % 0.2 % (0.0-2.0); EOSINOPHILS % 1.4 % (0.0-5.0); HEMATOCRIT. 38.4 % (42.0-52.0); HEMOGLOBIN. 13.2 g/dL (14.0-18.0); LYMPHOCYTES % 43.1 % (20.0-50.0); MEAN PLATELET VOLUME 9.0 fl (7.4-10.4); MONOCYTES % 6.2 % (2.0-8.0); NEUTROPHILS % 49.1 % (40.0-76.0); PLATELET 284 x1000/uL (130-400); RED BLOOD CELL COUNT 4.38 mill/uL (4.7-6.1); RED CELL DISTRIBUTION WIDTH 13.0 % (11.6-14.6)
[2025-04-24 08:00] VITALS: BP 112/79; PULSE 95; RESP 21; TEMP 36.6; O2SAT 100
[2025-04-24] MEDS ORDERED: METF-1149 MT (08:52)
[2025-04-24] MEDS ORDERED: INSLIS SUBCUT (08:52)
[2025-04-24] MEDS ORDERED: LIP40 PO (08:52)
[2025-04-24] MEDS ORDERED: INSU100I28 SQ (08:52)
[2025-04-24 11:08] VITALS: BP 112/79; PULSE 95; RESP 21; TEMP 97.8
== END 2025-04-24 12:20 | disposition home or self-care (01) | DRG 420 ==
LOC: ER 09:33 → 7WST 10:46 → ENRESERV 10:57
PROVIDERS: ADMIT Internal Medicine; ATTEND Internal Medicine
DX: E11.00 Type 2 diabetes mellitus with hyperosmolarity without nonketotic hyperglycemic-hyperosmolar coma (NKHHC) (principal); E78.5 Hyperlipidemia, unspecified; I10 Essential (primary) hypertension; F17.200 Nicotine dependence, unspecified, uncomplicated; Z79.899 Other long term (current) drug therapy
CPT/HCPCS: 36415; 36600; 71045; 80048; 80061; 80305; 81003; 82375; 82805; 82962; 83036; 84443; 84484; 85025; 93005; 93970; 96360; 99285; J1650; J1815; J2470; J7030